=== PATIENT | female | born 1965 | race Caucasian/White ===

== ENCOUNTER → 2017-02-04 | Outpatient (CLI) | payer BC, OTHER ==
--- NOTE | 2017-02-11 12:51 | SLEEPCENT ---
DATE OF PROCEDURE: 02/04/2017 ORDERED BY: Carmen Landon NP Nocturnal polysomnography was performed due to concern for the obstructive sleep apnea syndrome in this patient with a history of excessive somnolence and nonrestorative sleep and comorbidity of joint pain. 8 hours and 56 minutes of data were reviewed. There were 460 minutes of sleep identified. Sleep latency was mildly prolonged at 20 minutes. Rapid eye movement (REM) latency more so prolonged at 158 minutes. Sleep architecture showed significant fragmentation. There were 3 REM periods appreciated and overall sleep efficiency was 87.9%. The patient's electrocardiogram (EKG) showed a sinus rhythm with an average heart rate of 76 beats per minute. Electroencephalogram (EEG) showed fairly normal waveforms for awake and sleep and some mild alpha intrusion is suspected. There were 102 respiratory events identified of 10 seconds in duration or greater for an apnea-hypopnea index of 13.3. The events were primarily obstructive, not exclusive to sleep stage, and more frequent but not exclusive to the supine posture. Arousals from respiratory events occurred 7.3 times per hour and oxygen desaturations were seen into the 70s. There was also some limb movement activity noted in the pretibial leads. No trains of events were appreciated. Limb movement arousal index was borderline at 6.1. IMPRESSION: Moderate obstructive sleep apnea syndrome (G47.33), apnea-hypopnea index 13.3. RECOMMENDATION: The patient should be encouraged to return to the sleep disorder center for pressure therapy. In the interim, alcohol and sedative avoidance should be practiced and caution exercised during the operation of motor vehicles.
== END ==
LOC: M SLEEP 19:55
PROVIDERS: ATTEND Nurse Practitioner Adult Health
DX: G47.33 Obstructive sleep apnea (adult) (pediatric) (principal)

== ENCOUNTER → 2017-03-06 | Outpatient (CLI) | payer OTHER ==
--- NOTE | 2017-03-09 18:50 | SLEEPCENT ---
DATE OF PROCEDURE: 03/06/2017 ORDERED BY: Carmen Landon Nocturnal polysomnography was performed for the titration of pressure therapy in this patient with obstructive sleep apnea syndrome. Apnea-hypopnea index of 13.3. For testing the patient was fit with a ResMed Air Fit F20 full face mask of small size. 4 cm of water pressure were applied to the circuit and the lights were extinguished. 7 hours and 45 minutes of data were reviewed. There were 352 minutes of sleep identified. Sleep latency was prolonged at 79 minutes. Rapid eye movement (REM) latency was prolonged at 186 minutes. Sleep architecture improved late in the study. There were two REM periods appreciated. Overall sleep efficiency was 76%. Patient's EKG showed a sinus rhythm with an average heart rate of 68 beats per minute. EEG showed normal wave forms for wake and sleep. Respiratory events were fully palliated with CPAP at a pressure of +9. Some limb activity was appreciated by limb movement arousal index was up from the patient's diagnostic study of 11.3. IMPRESSION: Severe obstructive sleep apnea syndrome (G47.33). RECOMMENDATIONS: Nightly use of pressure therapy, 9 cm of water.
== END ==
LOC: M SLEEP 20:08
PROVIDERS: ATTEND Nurse Practitioner Adult Health
DX: G47.33 Obstructive sleep apnea (adult) (pediatric) (principal)

== ENCOUNTER → 2017-11-03 | Outpatient (CLI) | payer OTHER | LOC: M RAD 07:37 | DX: R10.11 Right upper quadrant pain (principal) | CPT/HCPCS: J2805 ==

== ENCOUNTER → 2021-02-19 | Outpatient (CLI) | payer BC, OTHER ==
--- NOTE | 2021-02-19 09:05 | REP ---
INDICATION: PAIN. COMPARISON: None. TECHNIQUE: AP, lateral, and sunrise views of the right knee FINDINGS: [place] view demonstrates fraying along the anterior patellar margin along with increased sclerosis to the posterior patella with joint space narrowing. No acute fracture or dislocation. No effusion. Frontal radiograph demonstrates decreased medial joint space. IMPRESSION: Mild/early moderate osteoarthritic degenerative changes. <Electronically signed by Enrico Lagos > 02/19/21 0901
== END ==
LOC: M SOG 08:15
PROVIDERS: ATTEND Orthopaedic Surgery Adult Reconstructive Orthopaedic Surgery
DX: M17.11 Unilateral primary osteoarthritis, right knee (principal)

== ENCOUNTER → 2021-03-16 | Outpatient (CLI) | payer BC ==
[~2021-03-16] MED LIST: CETI5SOL3 PO; D31000TA2 PO; EPIN0.3I11
== END ==
LOC: M RAD 18:05
PROVIDERS: ATTEND Orthopaedic Surgery Adult Reconstructive Orthopaedic Surgery
DX: M23.91 Unspecified internal derangement of right knee (principal)

== ENCOUNTER → 2021-04-09 | Outpatient (CLI) | payer BC | LOC: M LABSMTC 10:09 | PROVIDERS: ATTEND Anesthesiology | DX: Z01.812 Encounter for preprocedural laboratory examination (principal) ==

== ENCOUNTER 2021-04-14 12:24 | Day surgery (SDC) | payer BC ==
[~2021-04-14] VITALS: Ht 154.9 cm; Wt 85.6 kg
[~2021-04-14 12:24] MED LIST changes: +ACETAMINOPHEN 500 MG TAB PO ONE; +CelecoXIB 400 MG CAP PO ONE; +GABAPENTIN 300 MG CAP PO ONE; +ONDANSETRON 4MG/2ML VIAL IV ONE
[2021-04-14] MEDS ORDERED: ONDANSETRON 4MG/2ML VIAL As Ordered ONE (12:40)
[2021-04-14] MEDS ORDERED: LIDOCAINE 2% 100MG/5ML SDV (FOR ANES.) As Ordered ONE (12:40)
[2021-04-14] MEDS ORDERED: dexameTHASONE 4 MG/ML 1ML VIAL (J1100 PER 1MG) As Ordered ONE (12:40)
[2021-04-14] MEDS ORDERED: MIDAZOLAM INJ 2MG/2ML VIAL (J2250 PER 1MG) As Ordered ONE (12:40)
[2021-04-14] MEDS ORDERED: SUGAMMADEX SODIUM 500 MG/5 ML VIAL (BRIDION) As Ordered ONE (12:40)
[2021-04-14] MEDS ORDERED: fentaNYL 100 MCG/2 ML INJECTION (J3010) As Ordered ONE (12:40)
[2021-04-14] MEDS ORDERED: propofoL 200 MG/20 ML VIAL As Ordered ONE (12:40)
[2021-04-14] MEDS ORDERED: ROCURONIUM BROMIDE 50 MG/5 ML VIAL As Ordered ONE (12:40)
[2021-04-14] MEDS ORDERED: EPINEPHrine 1MG/ML INJ 30ML MD-VIAL As Ordered ONE (14:09)
[2021-04-14] MEDS ORDERED: BUPIVACAINE/EPIN 0.5% 30 ML VIAL As Ordered ONE (14:09)
[2021-04-14] MEDS ORDERED: LR 1,000 ML IV ONE (14:45)
[2021-04-14] MEDS ORDERED: PHENYLephrine 500MCG 5ML (100MCG/ML) SYRINGE As Ordered ONE (15:39)
[2021-04-14] MEDS ORDERED: fentaNYL 100 MCG/2 ML INJECTION (J3010) IV PRN (17:05)
[2021-04-14] MEDS ORDERED: METOCLOPRAMIDE INJ 10MG/2ML VIAL (J2765 PER 1) IV PRN (17:05)
[2021-04-14] MEDS ORDERED: oxyCODONE 5MG TAB PO PRN (17:05)
[2021-04-14] MEDS ORDERED: LR 1,000 ML IV SCH (17:05)
[2021-04-14] MEDS ORDERED: ONDANSETRON 4MG/2ML VIAL IV PRN (17:05)
--- NOTE | 2021-04-14 17:13 | ROOPDOC ---
[facility] Report Of Operation Report of Operation DATE OF PROCEDURE: 04/14/21 PREPROCEDURE DIAGNOSES: Right knee medial meniscal tear POSTPROCEDURE DIAGNOSES: Right knee medial meniscal tear with grade 2 through 4 chondral changes PROCEDURE: Right knee arthroscopy Partial debridement of medial meniscus Tricompartmental chondroplasty/abrasion arthroplasty Excision of plica x3 SURGEON: Ag Stephenson MD CUSTOMER ASSISTANCE REPRESENTATIVE: Charity Frazier PA-C ANESTHESIA: General ESTIMATED BLOOD LOSS: Less than 50 mL. COMPLICATIONS: No known complications. REMARKS: Tourniquet inflated for 45 minutes. PROCEDURE NOTE: The patient was seen in the preoperative area, Consent was reviewed or obtained and the appropriate extremity was marked. Of note, there was then intraprocedural delay secondary to inadequate function of the arthroscopic shaver and suction devices. A new Vianey and arthroscopic shaver had to be opened. Delay of approximately 5 to 10 minutes. DESCRIPTION OF PROCEDURE: The patient was brought to the operating room and after a surgical pause, the anesthetic was induced. The patient was appropriately positioned supine on the operating room table. A tourniquet was applied to the appropriate thigh with appropriate padding. Side bolster was also applied to help with manipulation of the extremity during the procedure. The extremity was prepped with chlorhexidine. The patient was draped in the normal sterile fashion. After a surgical safety checklist was performed, and a timeout was performed, the tourniquet was inflated and the incision over the lateral portal site was carried out. The trocar was introduced using the blunt tip. The scope was introduced and the fluid was allowed to run until the joint was insufflated with the scope in the patellofemoral joint. A diagnostic arthroscopy was then carried out. A medial portal was established using needle localization technique. A superior lateral portal was also established using needle localization. Patellofemoral joint: Grade 2 through 3 changes Patella: Grade 2 change Medial gutter: No Lateral gutter: Nil Medial meniscus: Posterior horn medial meniscal tear with horizontal tear extending through the body. Extensive debridement of posterior horn and body utilizing punches and arthroscopic shaver Medial femoral condyle: Debridement of grade 2 changes utilizing the shaver Medial tibial condyle: Debridement of grade 2 changes utilizing the shaver. Of note there was also a small area medially about half a centimeter in diameter of grade 4 change ACL: Stable Lateral meniscus: Stable Lateral femoral condyle: Grade 0 Lateral tibial plateau: Grade 1 Once the arthroscopic procedure was completed, the fluid was removed from the joint and the wounds were closed with 3. 0 Monocryl suture. Local anesthetic of 0.5% Marcaine with epi was instilled in the soft tissues and into the joint region. Mastisol was applied to the skin followed by Steri-Strips and Telfa and Tegaderm dressing. This was reinforced with an abdominal pad and a large Trace wrap was placed up to the level of the thigh from the foot and ankle. The patient tolerated the procedure well with no known complications. The patient will be seen for follow-up within 2 weeks, as scheduled. Postoperative instruction booklet was provided. The patient will have prescriptions for oxycodone for pain, baby aspirin for DVT prophylaxis, and senna for constipation. Tylenol and ibuprofen can be used as directed by bottle instructions. Prescriptions were sent to [facility] in [place], as requ michaelle. Thank you for referring this patient to my care, AG STEPHENSON MD Apr 14, 2021 17:13
[2021-04-14 18:40] VITALS: BP 114/66
== END 2021-04-14 19:12 | disposition home or self-care (01) ==
LOC: M SDC 12:24
PROVIDERS: ATTEND Orthopaedic Surgery Adult Reconstructive Orthopaedic Surgery
DX: M23.306 Other meniscus derangements, unspecified meniscus, right knee (principal); M25.561 Pain in right knee; G47.33 Obstructive sleep apnea (adult) (pediatric); F32.9 Major depressive disorder, single episode, unspecified; E55.9 Vitamin D deficiency, unspecified; G43.909 Migraine, unspecified, not intractable, without status migrainosus; Z88.5 Allergy status to narcotic agent; Z91.040 Latex allergy status; Z91.030 Bee allergy status
CPT/HCPCS: 29879; 29881; J1100; J2250; J2370; J2405; J3010

== ENCOUNTER 2024-07-02 09:22 | Day surgery (SDC) | payer BC ==
[~2024-07-02] VITALS: Ht 152.4 cm; Wt 76.0 kg
[~2024-07-02 09:22] MED LIST changes: -ACETAMINOPHEN 500 MG TAB PO ONE; +CETI10CA13 PO; -CelecoXIB 400 MG CAP PO ONE; -D31000TA2 PO; -GABAPENTIN 300 MG CAP PO ONE; +LR 1,000 ML IV SCH; +MIDAZOLAM INJ 2MG/2ML VIAL As Ordered ONE; -ONDANSETRON 4MG/2ML VIAL IV ONE; +VITA100093 PO; +fentaNYL 100 MCG/2 ML INJECTION As Ordered ONE; +semaglutide SC
[2024-07-02] MEDS: PHENYLEPHRINE 2.5% OPHTH SOL 2ML OD SCH (10:01)
[2024-07-02] MEDS: CYCLOPENTOLATE 1% OPHTH SOLN 2ML BTL OD SCH (10:01)
[2024-07-02] MEDS: FLURBIPROFEN 0.03% OPHTH SOLN 2.5 ML OD SCH (10:01)
[2024-07-02] MEDS: TETRACAINE 0.5% OPHTH SOLN 4ML OD SCH (10:01)
[2024-07-02] MEDS ORDERED: ALPR0.25 PO (10:04)
[2024-07-02] MEDS: CEFUROXIME 1MG/0.1ML INTRACAMERAL INJ As Ordered ONE (11:45)
[2024-07-02] MEDS: LIDOCAINE 1% SDV 5ML VIAL As Ordered ONE (11:45)
[2024-07-02 12:07] VITALS: BP 111/73; TEMP 98; O2SAT 94
== END 2024-07-02 12:16 | disposition home or self-care (01) ==
LOC: M SDC 09:22
PROVIDERS: ATTEND Ophthalmology
DX: H25.11 Age-related nuclear cataract, right eye (principal); F32.A Depression, unspecified; G43.909 Migraine, unspecified, not intractable, without status migrainosus; Z79.899 Other long term (current) drug therapy; J30.2 Other seasonal allergic rhinitis; Z88.5 Allergy status to narcotic agent; Z91.030 Bee allergy status; Z91.040 Latex allergy status
CPT/HCPCS: 66984; J0697; J2250; J3010; V2632

== ENCOUNTER 2024-10-22 09:48 | Day surgery (SDC) | payer BC ==
[~2024-10-22] VITALS: Ht 152.4 cm; Wt 73.4 kg
[~2024-10-22 09:48] MED LIST changes: +ALPR0.25 PO; +K2 P1TAB PO; -MIDAZOLAM INJ 2MG/2ML VIAL As Ordered ONE; -fentaNYL 100 MCG/2 ML INJECTION As Ordered ONE
[2024-10-22] MEDS: TETRACAINE 0.5% OPHTH SOLN 4ML OD SCH (10:42)
[2024-10-22] MEDS: FLURBIPROFEN 0.03% OPHTH SOLN 2.5 ML OD SCH (10:43)
[2024-10-22] MEDS: CYCLOPENTOLATE 1% OPHTH SOLN 2ML BTL OD SCH (10:43)
[2024-10-22] MEDS: PHENYLEPHRINE 2.5% OPHTH SOL 2ML OD SCH (10:43)
[2024-10-22] MEDS ORDERED: fentaNYL 100 MCG/2 ML INJECTION As Ordered ONE (11:53)
[2024-10-22] MEDS ORDERED: MIDAZOLAM INJ 2MG/2ML VIAL As Ordered ONE (11:53)
[2024-10-22] MEDS: LIDOCAINE 1% SDV 5ML VIAL As Ordered ONE (12:49)
[2024-10-22] MEDS: CEFUROXIME 1MG/0.1ML INTRACAMERAL INJ As Ordered ONE (12:51)
[2024-10-22 13:09] VITALS: BP 136/63; TEMP 98; O2SAT 97
[2024-10-22] MEDS: ACETAMINOPHEN 325 MG TAB PO ONE (13:25)
== END 2024-10-22 12:33 | disposition home or self-care (01) ==
LOC: M SDC 09:48
PROVIDERS: ATTEND Ophthalmology
DX: H25.9 Unspecified age-related cataract (principal); G47.30 Sleep apnea, unspecified; F41.9 Anxiety disorder, unspecified; Z79.899 Other long term (current) drug therapy; Z98.41 Cataract extraction status, right eye; Z85.828 Personal history of other malignant neoplasm of skin; Z88.8 Allergy status to other drugs, medicaments and biological substances; Z91.038 Other insect allergy status; Z91.040 Latex allergy status
CPT/HCPCS: 66984; J0697; J2250; J3010; V2632

== ENCOUNTER → 2024-11-14 | Outpatient (CLI) | payer BC ==
[~2024-11-14] MED LIST changes: -LR 1,000 ML IV SCH
== END ==
LOC: M SLEEP HO 10:24
PROVIDERS: ATTEND Physician Assistant
DX: G47.33 Obstructive sleep apnea (adult) (pediatric) (principal)

== ENCOUNTER → 2025-02-25 | Outpatient (CLI) | payer BC | LOC: M PLAIMG 07:53 | PROVIDERS: ATTEND Physician Assistant | DX: M17.11 Unilateral primary osteoarthritis, right knee (principal) ==

== ENCOUNTER → 2025-02-27 | Outpatient (REF) | payer BC | LOC: M LAB REF 12:39 | PROVIDERS: ATTEND Neuromusculoskeletal Medicine, Sports Medicine | DX: M17.11 Unilateral primary osteoarthritis, right knee (principal) ==

== ENCOUNTER → 2025-05-17 | Outpatient (CLI) | payer BC ==
[~2025-05-17] MED LIST changes: +MONT10TA97 PO
[2025-05-17 08:58] LABS: BASO # 0.1 10^3/uL (0.0-0.2); BASO % 0.7 % (0.0-1.0); EOS # 0.3 10^3/uL (0.0-0.5); EOS % 3.4 % (0.0-3.0); LYMPH # 2.3 10^3/uL (1.5-5.0); LYMPH % 28.3 % (24.0-44.0); MONO # 0.6 10^3/uL (0.0-0.8); MONO % 6.8 % (2.0-8.0); NEUTROPHILS # 5.0 10^3/uL (1.5-8.5); NEUTROPHILS % 60.4 % (36.0-66.0); PLATELET COUNT, AUTOMATED 363 10^3/uL (150-450)
[2025-05-17 09:14] LABS: ALT/SGPT 29 U/L (7.0-40); AST/SGOT 22 U/L (<34); CALCIUM LEVEL 9.6 MG/DL (8.3-10.6); CARBON DIOXIDE LEVEL 30 MMOL/L (20-31); CHLORIDE LEVEL 104 MMOL/L (98-107); CREATININE FOR GFR 0.70 MG/DL (0.55-1.30); GLOMERULAR FILTRATION RATE > 90.0 (>45); POTASSIUM SERUM 4.1 MMOL/L (3.5-5.1); SODIUM LEVEL 143 MMOL/L (136-145)
[2025-05-17 09:16] LABS: TOTAL 25(OH) VITAMIN D 42.3 NG/ML (20.0-100.0)
== END ==
LOC: M RAD 08:13
PROVIDERS: ATTEND Neuromusculoskeletal Medicine, Sports Medicine
DX: M17.11 Unilateral primary osteoarthritis, right knee (principal)

== ENCOUNTER 2025-06-04 06:07 | Observation (INO) | payer BC ==
[~2025-06-04] VITALS: Ht 152.4 cm; Wt 88.9 kg
[2025-06-04] VITALS (7 sets, daily range): BP systolic 100–130; BP diastolic 53–75; TEMP 97.9–98.8; O2SAT 90–98
[~2025-06-04 06:07] MED LIST changes: -EPIN0.3I11; +EPIN0.3I11 INJ
[2025-06-04] MEDS ORDERED: LR 1,000 ML IV SCH (06:20)
[2025-06-04] MEDS ORDERED: dexAMETHasone 4 MG/ML 1 ML VIAL As Ordered ONE (06:51)
[2025-06-04] MEDS ORDERED: LIDOCAINE 2% 100 MG/5 ML SDV (FOR ANES.) As Ordered ONE (06:51)
[2025-06-04] MEDS ORDERED: ONDANSETRON 4MG/2ML VIAL As Ordered ONE (06:51)
[2025-06-04] MEDS ORDERED: ROCURONIUM BROMIDE 50MG/5ML VIAL As Ordered ONE (07:12)
[2025-06-04] MEDS: MIDAZOLAM INJ 2 MG/2 ML VIAL IV PRN (07:29)
[2025-06-04] MEDS: ROPIvacaine 0.5% 30ML VIAL PN ONE (07:30)
[2025-06-04] MEDS: LIDOCAINE 1% SDV 5 ML VIAL PN ONE (07:30)
[2025-06-04] MEDS: dexAMETHasone 10 MG/1 ML VIAL PRES.FREE PN ONE (07:30)
[2025-06-04] MEDS: TRANEXAMIC ACID 100 MG/ML 10ML VIAL As Ordered ONE (08:13)
[2025-06-04] MEDS ORDERED: ACETAMINOPHEN 1000MG/100ML IV BAG As Ordered ONE (08:14)
[2025-06-04] MEDS ORDERED: SUGAMMADEX SODIUM 500 MG/5 ML VIAL As Ordered ONE (08:23)
[2025-06-04] MEDS ORDERED: HYDROmorphone HCL 2 MG/ML 1 ML VIAL As Ordered ONE (08:49)
[2025-06-04] MEDS: ceFAZolin SOD 2 GM IV ONCE IV ONE (09:50)
[2025-06-04] MEDS: VANCOMYCIN 1000MG/20ML VIAL As Ordered ONE (09:53)
[2025-06-04] MEDS: KETOROLAC 30 MG/ML 1 ML VIAL As Ordered ONE (10:01)
[2025-06-04] MEDS ORDERED: ONDANSETRON 4MG/2ML VIAL IV PRN (10:10)
[2025-06-04] MEDS ORDERED: HYDROMORPHONE HCL 0.5 MG/0.5 ML SYRINGE IV PRN (11:25)
[2025-06-04] MEDS: LR 1,000 ML IV SCH (13:06)
[2025-06-04] MEDS: ceFAZolin SODIUM 2 GM in DEXTROSE 5% (D5W) ADV/MINI-BAG 50 ML IV SCH (16:53)
[2025-06-04] MEDS: ACETAMINOPHEN 325 MG TAB PO SCH (17:28)
[2025-06-04] MEDS: ASPIRIN 81 MG ENTERIC TABLET PO SCH (20:23)
[2025-06-04] MEDS: DOCUSATE SODIUM 100 MG CAPSULE PO SCH (20:24)
[2025-06-04] MEDS: ONDANSETRON 4MG/2ML VIAL IV PRN (23:19)
[2025-06-05 00:26] VITALS: BP 114/58; TEMP 98.2; O2SAT 93
[2025-06-05 04:05] VITALS: BP 113/57; TEMP 98.1; O2SAT 94
[2025-06-05 06:41] LABS: BASO # 0.0 10^3/uL (0.0-0.2); BASO % 0.1 % (0.0-1.0); EOS # 0.0 10^3/uL (0.0-0.5); EOS % 0.0 % (0.0-3.0); LYMPH # 1.6 10^3/uL (1.5-5.0); LYMPH % 10.2 % (24.0-44.0); MONO # 1.1 10^3/uL (0.0-0.8); MONO % 6.7 % (2.0-8.0); NEUTROPHILS # 13.1 10^3/uL (1.5-8.5); NEUTROPHILS % 82.4 % (36.0-66.0); PLATELET COUNT, AUTOMATED 322 10^3/uL (150-450)
[2025-06-05 07:08] LABS: ALT/SGPT 56 U/L (7.0-40); AST/SGOT 42 U/L (<34); CALCIUM LEVEL 9.0 MG/DL (8.3-10.6); CARBON DIOXIDE LEVEL 28 MMOL/L (20-31); CHLORIDE LEVEL 103 MMOL/L (98-107); CREATININE FOR GFR 0.64 MG/DL (0.55-1.30); GLOMERULAR FILTRATION RATE > 90.0 (>45); MAGNESIUM LEVEL 1.9 MG/DL (1.8-2.4); POTASSIUM SERUM 4.4 MMOL/L (3.5-5.1); SODIUM LEVEL 140 MMOL/L (136-145)
[2025-06-05 07:55] VITALS: BP 130/76; TEMP 97.9; O2SAT 99
[2025-06-05] MEDS: SENNA 8.6 MG TAB PO PRN (08:00)
[2025-06-05] MEDS ORDERED: OCUV1CAP4 PO (08:21)
[2025-06-05] MEDS ORDERED: OMEG10002 PO (08:21)
[2025-06-05] MEDS ORDERED: HOME MED LIST COMPLETE! XX SCH (08:25)
[2025-06-05] MEDS ORDERED: FERROUS SULFATE 325 MG TAB PO SCH (09:00)
[2025-06-05] MEDS ORDERED: ASCORBIC ACID 500 MG TAB PO SCH (09:00)
[2025-06-05] MEDS ORDERED: HYDR2TAB2 PO (11:21)
[2025-06-05] MEDS ORDERED: ASPI81TAEC PO (12:20)
[2025-06-05 14:01] VITALS: BP 119/75; TEMP 98.1; O2SAT 95
== END 2025-06-05 14:40 | disposition home health service (06) ==
LOC: M SDC 06:07 → M RR INP 06:08 → M MS5PR 12:10
PROVIDERS: ADMIT Neuromusculoskeletal Medicine, Sports Medicine; ATTEND Neuromusculoskeletal Medicine, Sports Medicine
DX: M17.11 Unilateral primary osteoarthritis, right knee (principal); F41.9 Anxiety disorder, unspecified; G47.33 Obstructive sleep apnea (adult) (pediatric); G43.909 Migraine, unspecified, not intractable, without status migrainosus; Z79.899 Other long term (current) drug therapy; Z91.040 Latex allergy status; Z91.030 Bee allergy status; Z88.8 Allergy status to other drugs, medicaments and biological substances
CPT/HCPCS: 27447; 36415; 64447; 73560; 80053; 83735; 85025; 88300; 96365; 96366; 96375; 97110; 97116; 97161; 97165; 97530; C1776; J0131; J0665; J0666; J0688; J1100; J1171; J1885; J2250; J2405; J2795; J3010; J3373; S2900

== ENCOUNTER → 2025-06-13 | Outpatient (CLI) | payer BC ==
[~2025-06-13] MED LIST changes: +ASPI81TAEC PO; +HYDR2TAB2 PO; +OCUV1CAP4 PO; +OMEG10002 PO
== END ==
LOC: M SOG 07:20
PROVIDERS: ATTEND Physician Assistant
DX: M17.11 Unilateral primary osteoarthritis, right knee (principal)

== ENCOUNTER → 2025-06-18 | Outpatient (REF) | payer BC ==
[2025-06-18 18:39] LABS: APPEARANCE, URINE CLEAR (CLEAR); BACTERIA, URINE AUTO NEGATIVE (NEGATIVE); BILIRUBIN, URINE AUTO NEGATIVE (NEGATIVE); BLOOD, URINE BLOOD NEGATIVE (NEGATIVE); GLUCOSE, URINE (UA) AUTO NEGATIVE (NEGATIVE); KETONE, URINE AUTO NEGATIVE (NEGATIVE); LEUKOCYTE ESTERASE, URINE AUTO NEGATIVE (NEGATIVE); NITRITE, URINE AUTO NEGATIVE (NEGATIVE); PROTEIN, URINE AUTO NEGATIVE (NEGATIVE); RBC, URINE AUTO 0 /HPF (0-3); SPECIFIC GRAVITY URINE AUTO 1.006 (1.002-1.035); SQUAMOUS EPITHELIAL CELL UR AU 0 /HPF (0-6); UROBILINOGEN, URINE AUTO 0.2 mg/dL (0.0-2.0); WBC, URINE AUTO 1 /HPF (0-3)
== END ==
LOC: M SHH 16:51
PROVIDERS: ATTEND Physician Assistant Medical
DX: R35.0 Frequency of micturition (principal)

== ENCOUNTER → 2025-06-21 | Outpatient (REF) | payer BC ==
[2025-06-21 17:59] LABS: C REACTIVE PROTEIN QUANTITATIV 1.11 MG/DL (<1.0)
[2025-06-21 18:00] LABS: ALT/SGPT 30.0 U/L (7.0-40); AST/SGOT 19.0 U/L (<34)
[2025-06-21 18:05] LABS: BASO # 0.1 10^3/uL (0.0-0.2); BASO % 0.6 % (0.0-1.0); EOS # 0.4 10^3/uL (0.0-0.5); EOS % 4.7 % (0.0-3.0); LYMPH # 1.9 10^3/uL (1.5-5.0); LYMPH % 21.2 % (24.0-44.0); MONO # 0.4 10^3/uL (0.0-0.8); MONO % 4.0 % (2.0-8.0); NEUTROPHILS # 6.1 10^3/uL (1.5-8.5); NEUTROPHILS % 69.2 % (36.0-66.0); PLATELET COUNT, AUTOMATED 619 10^3/uL (150-450)
== END ==
LOC: M LABDRAWC 17:21
PROVIDERS: ATTEND Neuromusculoskeletal Medicine, Sports Medicine
DX: M17.11 Unilateral primary osteoarthritis, right knee (principal); Z47.1 Aftercare following joint replacement surgery